=== PATIENT | male | born 1970 | race Caucasian/White ===

== ENCOUNTER 2020-10-28 14:37 | Inpatient (IN) | payer BC, MEDICAID, OTHER ==
[~2020-10-28] VITALS: Ht 177.8 cm; Wt 86.2 kg
[2020-10-28] MEDS ORDERED: ONDANSETRON HCL 4MG/2ML INJ IV STA (15:25)
[2020-10-28] MEDS ORDERED: MORPHINE SULFATE 4 MG/ML CPJ (NOT FOR IM USE) IV STA (15:25)
[2020-10-28] MEDS ORDERED: SODIUM CHLORIDE 0.9% 1,000 ML IV ONE ×2 (15:30→17:30)
[2020-10-28 15:52] LABS: BASOPHILS % 0.4 % (0.0-2.0); EOSINOPHILS % 0.3 % (0.0-5.0); HEMATOCRIT. 50.4 % (42.0-52.0); LYMPHOCYTES % 18.4 % (20.0-50.0); MEAN CORPUSCULAR VOLUME 91.8 fL (80.0-94.0); MEAN PLATELET VOLUME 9.2 fl (7.4-10.4); MONOCYTES % 5.3 % (2.0-8.0); NEUTROPHILS % 75.6 % (40.0-76.0); PLATELET 333 x1000/uL (130-400); RED BLOOD CELL COUNT 5.49 mill/uL (4.7-6.1); RED CELL DISTRIBUTION WIDTH 14.4 % (11.6-14.6)
[2020-10-28 15:57] LABS: CHLORIDE 96 mEq/L (98-107)
[2020-10-28] MEDS ORDERED: METRONIDAZOLE 500 MG PREMIX 100 ML IV ONE (16:45)
[2020-10-28] MEDS ORDERED: MORPHINE SULFATE 4 MG/ML CPJ (NOT FOR IM USE) IV ONE (16:45)
[2020-10-28] MEDS ORDERED: CEFTRIAXONE 1 G PREMIX 50 ML IV ONE (16:45)
[2020-10-28 17:16] LABS: INR 1.1; PROTHROMBIN TIME 11.3 sec (9.6-11.0)
[2020-10-28 17:52] LABS: CLARITY URINE CLEAR (CLEAR); COLOR URINE DARK YELLOW (YELLOW); KETONES URINE 1+ (NEGATIVE); LEUKOCYTE ESTERASE URINE TRACE (NEGATIVE); NITRITE URINE NEGATIVE (NEGATIVE); OCCULT BLOOD URINE NEGATIVE (NEGATIVE); PH URINE 5.5 (4.5-8.0); PROTEIN URINE 1+ (NEGATIVE); SPECIFIC GRAVITY URINE 1.027 (1.005-1.030)
[2020-10-28] MEDS ORDERED: BUPIVACAINE HCL 0.5% (5MG/ML) 50ML ONE (18:24)
[2020-10-28] MEDS ORDERED: POLYMYXIN B SULFATE 500000 UNITS/VIAL ONE (18:24)
[2020-10-28] MEDS ORDERED: PROPOFOL 200MG/20ML VIAL IV ONE (18:25)
[2020-10-28] MEDS ORDERED: HYDROMORPHONE HCL/PF 2MG/ML (OR) ONE (18:25)
[2020-10-28] MEDS ORDERED: ROCURONIUM BROMIDE 10MG/ML VIAL 5ML IV ONE (18:25)
[2020-10-28] MEDS ORDERED: DEXAMETHASONE 4MG/ML 1ML VIAL ONE (18:26)
[2020-10-28] MEDS ORDERED: ALBUMIN HUMAN 25GM/100ML (25%) IV ONE (18:39)
[2020-10-28] MEDS ORDERED: GLYCOPYRROLATE 0.2 MG/ML 2ML VIAL ONE (19:20)
[2020-10-28] MEDS ORDERED: HYDROMORPHONE HCL/PF 2MG/ML CPJ IV PRN ×3 (19:30→20:15)
[2020-10-28] MEDS ORDERED: MEPERIDINE HCL/PF 25MG/ML CPJ IV PRN (19:30)
[2020-10-28] MEDS ORDERED: ONDANSETRON HCL 4MG/2ML INJ IV PRN (19:30)
[2020-10-28] MEDS ORDERED: LABETALOL 5MG/ML SYR 20 MG/4 ML SYRINGE IV PRN (19:30)
[2020-10-28] MEDS ORDERED: DEXT 5%/0.45% NACL KCL 20MEQ/L 1,000 ML IV SCH (20:15)
[2020-10-28 21:30] VITALS: BP 130/80
[2020-10-28 22:00] VITALS: BP 129/82
[2020-10-28] MEDS ORDERED: CEFAZOLIN 2000MG PREMIX 100 ML IV SCH (22:00)
[2020-10-28 22:30] VITALS: BP 130/80
[2020-10-28 23:00] VITALS: BP 123/77
[2020-10-28 23:30] VITALS: BP 128/79
[2020-10-29] VITALS (101 sets, daily range): BP systolic 91–156; BP diastolic 53–99
[2020-10-29] MEDS: HYDROMORPHONE HCL/PF 2MG/ML CPJ IV PRN ×4 (00:37→08:32)
[2020-10-29] MEDS: CEFAZOLIN 2,000 MG in DEXT 5% WATER 100 ML IV SCH ×3 (01:35→16:20)
[2020-10-29] MEDS: METRONIDAZOLE 500 MG PREMIX 100 ML IV SCH ×4 (03:01→23:27)
[2020-10-29 05:47] LABS: CHLORIDE 107 mEq/L (98-107); HEMATOCRIT. 39.5 % (42.0-52.0); MEAN CORPUSCULAR HEMOGLOBIN 29.7 pg (28.0-32.0); MEAN CORPUSCULAR VOLUME 90.1 fL (80.0-94.0); PLATELET 238 x1000/uL (130-400); RED BLOOD CELL COUNT 4.38 mill/uL (4.7-6.1); RED CELL DISTRIBUTION WIDTH 14.2 % (11.6-14.6)
[2020-10-29] MEDS ORDERED: DEXT 5%/0.45% NACL KCL 20MEQ/L 1,000 ML IV SCH (06:30)
[2020-10-29] MEDS ORDERED: NALOXONE HCL 0.4 MG/ML 1ML VIAL IV PRN (08:15)
[2020-10-29] MEDS ORDERED: DEXT 5%/0.45% NACL 1000ML 1,000 ML IV SCH (09:30)
[2020-10-29] MEDS ORDERED: NALOXONE INJ IV PRN (09:30)
[2020-10-29] MEDS: HYDROMORPHONE PCA 10MG/50ML IV PRN ×2 (11:08→23:43)
[2020-10-29 12:04] LABS: PLATELET ESTIMATE NORMAL
[2020-10-29] MEDS ORDERED: IPRATROPIUM/ALBUTEROL 0.5-3(2.5)MG/3ML NEB HHN PRN (14:15)
[2020-10-29] MEDS ORDERED: ONDANSETRON HCL 4MG/2ML INJ IV PRN (14:15)
[2020-10-29] MEDS ORDERED: CLONIDINE 0.1MG TABLET PO PRN (14:15)
[2020-10-29] MEDS ORDERED: LORAZEPAM 2MG/ML CPJ IV PRN (14:15)
[2020-10-29] MEDS ORDERED: ACETAMINOPHEN 325MG TABLET PO PRN ×2 (14:15)
[2020-10-29] MEDS ORDERED: HYDROCODONE/ACETAMINOPHEN 5/325MG TABLET PO PRN (14:15)
[2020-10-29] MEDS: DEXT 5%/0.9% NACL 1,000 ML IV SCH (14:33)
[2020-10-29] MEDS: PANTOPRAZOLE SODIUM 40 MG/VIAL IV SCH (14:33)
[2020-10-29 20:10] LABS: *AMPHETAMINES SCREEN URINE PRESUMTIVE POSITIVE (NEGATIVE); *BARBITURATES SCREEN URINE NEGATIVE (NEGATIVE); *BENZODIAZEPINES SCREEN URINE NEGATIVE (NEGATIVE); *COCAINE SCREEN URINE NEGATIVE (NEGATIVE)
[2020-10-29 20:11] LABS: METHADONE URINE SCREEN NEGATIVE (NEGATIVE); OPIATES URINE SCREEN PRESUMTIVE POSITIVE (NEGATIVE); PHENCYCLIDINE URINE SCREEN NEGATIVE (NEGATIVE)
[2020-10-29 20:26] LABS: CANNABINOID URINE SCREEN NEGATIVE (NEGATIVE)
[2020-10-29 22:42] LABS: HEPATITIS B SURFACE ANTIGEN NEGATIVE
[2020-10-30] VITALS (11 sets, daily range): BP systolic 117–146; BP diastolic 69–82
[2020-10-30] MEDS: DEXT 5%/0.9% NACL 1,000 ML IV SCH ×3 (00:15→22:02)
[2020-10-30] MEDS: CEFAZOLIN 2,000 MG in DEXT 5% WATER 100 ML IV SCH ×2 (01:13→09:34)
[2020-10-30] MEDS: METRONIDAZOLE 500 MG PREMIX 100 ML IV SCH ×3 (06:40→22:02)
[2020-10-30 07:11] LABS: CHLORIDE 109 mEq/L (98-107)
[2020-10-30 07:17] LABS: BASOPHILS % 0.1 % (0.0-2.0); HEMATOCRIT. 34.7 % (42.0-52.0); HEMOGLOBIN. 11.7 g/dL (14.0-18.0); LYMPHOCYTES % 8.3 % (20.0-50.0); MEAN CORPUSCULAR HEMOGLOBIN 30.2 pg (28.0-32.0); MEAN CORPUSCULAR VOLUME 89.6 fL (80.0-94.0); MEAN PLATELET VOLUME 9.5 fl (7.4-10.4); NEUTROPHILS % 83.6 % (40.0-76.0); PLATELET 209 x1000/uL (130-400); RED BLOOD CELL COUNT 3.87 mill/uL (4.7-6.1)
[2020-10-30 07:21] LABS: PHOSPHORUS 1.7 mg/dL (2.5-4.9)
[2020-10-30] MEDS: PANTOPRAZOLE SODIUM 40 MG/VIAL IV SCH (09:33)
[2020-10-30] MEDS: CEFTRIAXONE 2 G in DEXTROSE 5% WATER 50 ML IV SCH (15:22)
[2020-10-30] MEDS: HYDROMORPHONE PCA 10MG/50ML IV PRN (17:31)
[2020-10-31] VITALS (14 sets, daily range): BP systolic 110–131; BP diastolic 65–89
[2020-10-31] MEDS: METRONIDAZOLE 500 MG PREMIX 100 ML IV SCH ×3 (05:25→21:50)
[2020-10-31] MEDS: DEXT 5%/0.9% NACL 1,000 ML IV SCH (05:25)
[2020-10-31 06:04] LABS: CHLORIDE 109 mEq/L (98-107)
[2020-10-31 06:08] LABS: PHOSPHORUS 1.8 mg/dL (2.5-4.9)
[2020-10-31 06:19] LABS: BASOPHILS % 0.3 % (0.0-2.0); EOSINOPHILS % 1.4 % (0.0-5.0); HEMATOCRIT. 34.2 % (42.0-52.0); HEMOGLOBIN. 11.3 g/dL (14.0-18.0); LYMPHOCYTES % 10.5 % (20.0-50.0); MEAN CORPUSCULAR HEMOGLOBIN 29.9 pg (28.0-32.0); MEAN CORPUSCULAR VOLUME 90.8 fL (80.0-94.0); MEAN PLATELET VOLUME 9.1 fl (7.4-10.4); MONOCYTES % 6.9 % (2.0-8.0); NEUTROPHILS % 80.9 % (40.0-76.0); PLATELET 214 x1000/uL (130-400); RED BLOOD CELL COUNT 3.77 mill/uL (4.7-6.1); RED CELL DISTRIBUTION WIDTH 14.3 % (11.6-14.6)
[2020-10-31] MEDS: FAMOTIDINE 20MG/2ML VIAL IV SCH ×2 (08:52→21:50)
[2020-10-31] MEDS: CEFTRIAXONE 2 G in DEXTROSE 5% WATER 50 ML IV SCH (08:52)
[2020-10-31] MEDS ORDERED: SODIUM PHOS,M-BASIC-D-BASIC 10 MM in DEXT 5% WATER 246.6667 ML IV SCH (12:00)
[2020-10-31] MEDS ORDERED: POTASSIUM PHOS,M-BASIC-D-BASIC 10 MMOL in DEXT 5% WATER 246.6667 ML IV SCH (16:00)
[2020-10-31] MEDS: HYDROMORPHONE PCA 10MG/50ML IV PRN (18:01)
[2020-11-01 00:02] VITALS: BP 129/75
[2020-11-01] MEDS: DEXT 5%/0.9% NACL 1,000 ML IV SCH ×3 (03:24→21:19)
[2020-11-01 04:00] VITALS: BP 122/71
[2020-11-01] MEDS: METRONIDAZOLE 500 MG PREMIX 100 ML IV SCH ×3 (06:35→21:19)
[2020-11-01 08:00] VITALS: BP 126/70
[2020-11-01] MEDS: FAMOTIDINE 20MG/2ML VIAL IV SCH ×2 (09:14→21:18)
[2020-11-01] MEDS: CEFTRIAXONE 2 G in DEXTROSE 5% WATER 50 ML IV SCH (09:15)
[2020-11-01 10:06] LABS: BASOPHILS % 0.3 % (0.0-2.0); EOSINOPHILS % 2.6 % (0.0-5.0); HEMOGLOBIN. 12.4 g/dL (14.0-18.0); LYMPHOCYTES % 12.6 % (20.0-50.0); MEAN CORPUSCULAR VOLUME 89.9 fL (80.0-94.0); MEAN PLATELET VOLUME 9.1 fl (7.4-10.4); MONOCYTES % 11.3 % (2.0-8.0); NEUTROPHILS % 73.2 % (40.0-76.0); PLATELET 235 x1000/uL (130-400); RED BLOOD CELL COUNT 4.01 mill/uL (4.7-6.1); RED CELL DISTRIBUTION WIDTH 14.3 % (11.6-14.6)
[2020-11-01 10:15] LABS: CHLORIDE 106 mEq/L (98-107)
[2020-11-01 12:00] VITALS: BP 126/75
[2020-11-01 16:00] VITALS: BP 110/73
[2020-11-01] MEDS ORDERED: POTASSIUM CHLORIDE INJ 40 MEQ in DEXT 5% WATER 500 ML IV NR (18:00)
[2020-11-01 20:00] VITALS: BP 117/71
[2020-11-02] VITALS: BP 111/72
[2020-11-02 04:00] VITALS: BP 105/71
[2020-11-02] MEDS: METRONIDAZOLE 500 MG PREMIX 100 ML IV SCH ×3 (05:16→21:43)
[2020-11-02 07:02] LABS: BASOPHILS % 0.2 % (0.0-2.0); EOSINOPHILS % 3.3 % (0.0-5.0); HEMATOCRIT. 34.7 % (42.0-52.0); HEMOGLOBIN. 11.6 g/dL (14.0-18.0); LYMPHOCYTES % 13.4 % (20.0-50.0); MEAN CORPUSCULAR HEMOGLOBIN 30.3 pg (28.0-32.0); MEAN CORPUSCULAR VOLUME 90.4 fL (80.0-94.0); MEAN PLATELET VOLUME 8.7 fl (7.4-10.4); MONOCYTES % 13.1 % (2.0-8.0); PLATELET 268 x1000/uL (130-400); RED BLOOD CELL COUNT 3.84 mill/uL (4.7-6.1)
[2020-11-02 07:05] LABS: CHLORIDE 112 mEq/L (98-107)
[2020-11-02 08:00] VITALS: BP 123/70
[2020-11-02] MEDS: CEFTRIAXONE 2 G in DEXTROSE 5% WATER 50 ML IV SCH (09:08)
[2020-11-02] MEDS: FAMOTIDINE 20MG/2ML VIAL IV SCH ×2 (09:08→21:42)
[2020-11-02] MEDS: DEXT 5%/0.9% NACL 1,000 ML IV SCH (09:09)
[2020-11-02 12:00] VITALS: BP 109/68
[2020-11-02] MEDS: HYDROMORPHONE PCA 10MG/50ML IV PRN (14:38)
[2020-11-02 16:00] VITALS: BP 113/68
[2020-11-02] MEDS: HYDROMORPHONE HCL/PF 2MG/ML CPJ IV PRN ×2 (19:53→22:59)
[2020-11-02 20:00] VITALS: BP 117/78
[2020-11-03] VITALS: BP 115/71
[2020-11-03] MEDS: HYDROMORPHONE HCL/PF 2MG/ML CPJ IV PRN ×5 (01:59→20:24)
[2020-11-03 04:00] VITALS: BP 116/68
[2020-11-03] MEDS: METRONIDAZOLE 500 MG PREMIX 100 ML IV SCH ×3 (05:27→22:01)
[2020-11-03 07:11] LABS: BASOPHILS % 0.4 % (0.0-2.0); EOSINOPHILS % 2.7 % (0.0-5.0); HEMOGLOBIN. 11.4 g/dL (14.0-18.0); LYMPHOCYTES % 13.2 % (20.0-50.0); MEAN CORPUSCULAR HEMOGLOBIN 29.9 pg (28.0-32.0); MEAN CORPUSCULAR VOLUME 89.5 fL (80.0-94.0); MEAN PLATELET VOLUME 8.4 fl (7.4-10.4); MONOCYTES % 12.7 % (2.0-8.0); PLATELET 324 x1000/uL (130-400); RED CELL DISTRIBUTION WIDTH 14.1 % (11.6-14.6)
[2020-11-03 07:18] LABS: CHLORIDE 106 mEq/L (98-107)
[2020-11-03 08:00] VITALS: BP 121/77
[2020-11-03] MEDS: FAMOTIDINE 20MG/2ML VIAL IV SCH ×2 (09:06→20:25)
[2020-11-03] MEDS: CEFTRIAXONE 2 G in DEXTROSE 5% WATER 50 ML IV SCH (09:06)
[2020-11-03 12:00] VITALS: BP 113/67
[2020-11-03] MEDS: DEXT 5%/0.9% NACL 1,000 ML IV SCH (14:15)
[2020-11-03 16:00] VITALS: BP 117/74
[2020-11-03 20:00] VITALS: BP 114/64
[2020-11-04] VITALS: BP 108/78
[2020-11-04] MEDS: DEXT 5%/0.9% NACL 1,000 ML IV SCH ×3 (00:54→19:58)
[2020-11-04] MEDS: HYDROMORPHONE HCL/PF 2MG/ML CPJ IV PRN ×6 (00:55→22:38)
[2020-11-04 04:00] VITALS: BP 111/78
[2020-11-04] MEDS: METRONIDAZOLE 500 MG PREMIX 100 ML IV SCH ×3 (05:23→21:27)
[2020-11-04 07:04] LABS: BASOPHILS % 0.3 % (0.0-2.0); EOSINOPHILS % 4.6 % (0.0-5.0); HEMATOCRIT. 33.1 % (42.0-52.0); MEAN CORPUSCULAR HEMOGLOBIN 29.6 pg (28.0-32.0); MEAN CORPUSCULAR VOLUME 89.4 fL (80.0-94.0); MEAN PLATELET VOLUME 8.1 fl (7.4-10.4); MONOCYTES % 13.3 % (2.0-8.0); NEUTROPHILS % 66.8 % (40.0-76.0); PLATELET 340 x1000/uL (130-400); RED CELL DISTRIBUTION WIDTH 14.6 % (11.6-14.6)
[2020-11-04 07:16] LABS: CHLORIDE 108 mEq/L (98-107)
[2020-11-04 08:00] VITALS: BP 114/84
[2020-11-04] MEDS: FAMOTIDINE 20MG/2ML VIAL IV SCH ×2 (09:49→21:27)
[2020-11-04] MEDS: CEFTRIAXONE 2 G in DEXTROSE 5% WATER 50 ML IV SCH (09:49)
[2020-11-04 12:00] VITALS: BP 114/71
[2020-11-04 16:00] VITALS: BP 110/72
[2020-11-04 20:00] VITALS: BP 101/57
[2020-11-05] VITALS: BP 114/76
[2020-11-05] MEDS: HYDROMORPHONE HCL/PF 2MG/ML CPJ IV PRN ×4 (02:39→21:08)
[2020-11-05 04:00] VITALS: BP 138/75
[2020-11-05 06:29] LABS: BASOPHILS % 0.6 % (0.0-2.0); EOSINOPHILS % 4.9 % (0.0-5.0); HEMATOCRIT. 33.6 % (42.0-52.0); HEMOGLOBIN. 11.4 g/dL (14.0-18.0); LYMPHOCYTES % 18.7 % (20.0-50.0); MEAN CORPUSCULAR HEMOGLOBIN 30.2 pg (28.0-32.0); MEAN CORPUSCULAR VOLUME 89.2 fL (80.0-94.0); MEAN PLATELET VOLUME 8.3 fl (7.4-10.4); MONOCYTES % 13.8 % (2.0-8.0); PLATELET 363 x1000/uL (130-400); RED BLOOD CELL COUNT 3.77 mill/uL (4.7-6.1); RED CELL DISTRIBUTION WIDTH 14.6 % (11.6-14.6)
[2020-11-05] MEDS: METRONIDAZOLE 500 MG PREMIX 100 ML IV SCH ×3 (06:30→21:09)
[2020-11-05 06:31] LABS: CHLORIDE 105 mEq/L (98-107)
[2020-11-05] MEDS: DEXT 5%/0.9% NACL 1,000 ML IV SCH ×2 (06:31→16:15)
[2020-11-05 08:00] VITALS: BP 114/79
[2020-11-05] MEDS: FAMOTIDINE 20MG/2ML VIAL IV SCH (10:03)
[2020-11-05] MEDS: CEFTRIAXONE 2 G in DEXTROSE 5% WATER 50 ML IV SCH (10:03)
[2020-11-05 12:02] VITALS: BP 105/74
[2020-11-05] MEDS ORDERED: POTASSIUM CHLORIDE 20MEQ/PACKET PO NR (15:30)
[2020-11-05 16:00] VITALS: BP 111/75
[2020-11-05] MEDS ORDERED: OXYCODONE HCL/ACETAMINOPHEN 5/325MG TABLET PO NR (17:28)
[2020-11-05 20:00] VITALS: BP 123/79
[2020-11-05] MEDS: FAMOTIDINE 20MG TABLET PO SCH (21:08)
[2020-11-06] VITALS: BP 114/74
[2020-11-06] MEDS: HYDROMORPHONE HCL/PF 2MG/ML CPJ IV PRN ×4 (01:08→13:21)
[2020-11-06] MEDS: DEXT 5%/0.9% NACL 1,000 ML IV SCH ×2 (02:32→13:26)
[2020-11-06 04:00] VITALS: BP 111/89
[2020-11-06 08:00] VITALS: BP 133/90
[2020-11-06 08:45] LABS: BASOPHILS % 0.5 % (0.0-2.0); HEMATOCRIT. 32.6 % (42.0-52.0); HEMOGLOBIN. 11.2 g/dL (14.0-18.0); LYMPHOCYTES % 17.6 % (20.0-50.0); MEAN PLATELET VOLUME 8.1 fl (7.4-10.4); MONOCYTES % 11.3 % (2.0-8.0); NEUTROPHILS % 66.6 % (40.0-76.0); PLATELET 382 x1000/uL (130-400); RED BLOOD CELL COUNT 3.62 mill/uL (4.7-6.1); RED CELL DISTRIBUTION WIDTH 14.2 % (11.6-14.6)
[2020-11-06 08:47] LABS: CHLORIDE 108 mEq/L (98-107)
[2020-11-06] MEDS: FAMOTIDINE 20MG TABLET PO SCH (09:34)
[2020-11-06 12:00] VITALS: BP 114/81
[2020-11-06] MEDS ORDERED: OXYC1TAB21 MT (13:22)
[2020-11-06] MEDS ORDERED: [UNRECOGNIZED DRUG - CODE] MT (13:22)
[2020-11-06 16:00] VITALS: BP 119/78
[2020-11-06 16:11] VITALS: BP 119/78
[2020-11-07 09:00] VITALS: BP 124/64
== END 2020-11-06 17:03 | disposition home or self-care (01) | DRG 710 ==
LOC: ER 14:37 → 6EST 18:14 → EDBEDREQ 18:19 → ENRESERV 19:25 → CVICU 21:30 → 3WST 10-29 21:43 → 6EST 11-01 05:02
PROVIDERS: ADMIT Internal Medicine; ATTEND Internal Medicine
PROC: 0DU907Z Supplement Duodenum with Autologous Tissue Substitute, Open Approach (ICD-10-PCS; principal; 2020-10-28)
DX: A41.9 Sepsis, unspecified organism (principal); K26.5 Chronic or unspecified duodenal ulcer with perforation; K65.9 Peritonitis, unspecified; N17.9 Acute kidney failure, unspecified; E86.0 Dehydration; D64.9 Anemia, unspecified; E87.6 Hypokalemia; K59.00 Constipation, unspecified; D72.821 Monocytosis (symptomatic); R74.01 Elevation of levels of liver transaminase levels; F11.10 Opioid abuse, uncomplicated; Z20.822 Contact with and (suspected) exposure to COVID-19
CPT/HCPCS: 36415; 74176; 80048; 80053; 80076; 80305; 81003; 83735; 84100; 85025; 86850; 86900; 87426; 97110; 97116; 97162; 97530; 99291; C9113; J0690; J0696; J1100; J1170; J2270; J2405; J2704; J3480; J3490; J7030; J7040; J7042; J7060; P9047